=== PATIENT | female | born 1975 | race Caucasian/White ===

== ENCOUNTER 2022-07-09 18:34 | Emergency (ER) | payer SELFPAY ==
[~2022-07-09] VITALS: Ht 165.1 cm; Wt 81.8 kg
[2022-07-09 19:03] LABS: BASOPHILS % (AUTO) 0.1 % (0.0-2.0); EOSINOPHILS % (AUTO) 0.1 % (1.0-6.0); LYMPHOCYTES # (AUTO) 1.1 K/uL (1.0-4.8); LYMPHOCYTES % (AUTO) 5.9 % (22.0-44.0); MEAN CORPUSCULAR HEMOGLOBIN 31.5 pg (26.0-34.0); MEAN CORPUSCULAR HGB CONC 33.2 G/dL (31.0-37.0); MEAN CORPUSCULAR VOLUME 95 fL (80-100); MONOCYTES # (AUTO) 1.1 K/uL (0.1-1.0); MONOCYTES % (AUTO) 5.6 % (2.0-9.0); NEUTROPHILS # (AUTO) 16.5 K/uL (1.8-7.7); PLATELET COUNT (AUTO) 242 K/uL (150-450); RED CELL DISTRIBUTION WIDTH 13.4 % (11.5-14.5)
[2022-07-09 19:04] LABS: NEUTROPHILS % (AUTO) 88.3 % (40.0-70.0)
[2022-07-09 19:12] LABS: ANION GAP 8 mmol/L (8-16); CALCIUM, TOTAL 8.5 mg/dL (8.8-10.5); CARBON DIOXIDE 25 mmol/L (22-29); CHLORIDE 103 mmol/L (98-107); CREATININE 0.77 mg/dL (0.60-1.30); GLUCOSE,RANDOM 115 mg/dL (70-110); POTASSIUM 3.4 mmol/L (3.5-5.1); SODIUM SERUM 136 mmol/L (136-145); UREA NITROGEN, BLOOD 13 mg/dL (7-18)
[2022-07-09 19:13] LABS: GLOMERULAR FILTR. RATE CALC > 60 mL/min (>60)
[2022-07-09 19:23] LABS: ALANINE AMINOTRANSFERASE 30 U/L (12-78); ALBUMIN 2.8 g/dL (3.4-5.0); ALKALINE PHOSPHATASE 78 U/L (46-116); ASPARTATE AMINOTRANSFERASE 24 U/L (15-37); BILIRUBIN,TOTAL 0.8 mg/dL (0.1-1.0); HCG,QUANTITATIVE 1 mIU/mL (0-6); LIPASE 68 U/L (73-393); TOTAL PROTEIN, SERUM 6.2 g/dL (6.4-8.2)
[2022-07-09] MEDS ORDERED: SODIUM CHLORIDE 0.9% 100 ML ONE (20:44)
[2022-07-09] MEDS ORDERED: IOHEXOL 300 MG/ML 100 ML VIAL ONE (20:44)
[2022-07-09] MEDS ORDERED: SODIUM CHLORIDE 0.9% 1,000 ML IV ONE (20:45)
[2022-07-09] MEDS ORDERED: ONDANSETRON HCL 4 MG/2 ML VIAL IVP ONE (20:45)
[2022-07-09] MEDS ORDERED: MORPHINE SULFATE 4 MG/ML SYRINGE IVP ONE (20:45)
[2022-07-09 22:30] VITALS: BP 125/71
[2022-07-09] MEDS ORDERED: KETOROLAC TROMETHAMINE 30 MG/ML VIAL IVP ONE (22:30)
== END 2022-07-09 23:18 | disposition home or self-care (01) ==
LOC: EMS 18:34
DX: D25.9 Leiomyoma of uterus, unspecified (principal); F17.210 Nicotine dependence, cigarettes, uncomplicated; Z88.0 Allergy status to penicillin
CPT/HCPCS: 99285; 74177; 96374; 76856; 96361; 96375; 80053; 81002; 83690; 84702; 85025; 36415; J1885; J2270; J2405; J7030; J7050; Q9967

== ENCOUNTER 2024-12-08 18:27 | Emergency (ER) | payer OTHER ==
[~2024-12-08] VITALS: Ht 165.1 cm; Wt 79.5 kg
[2024-12-08 18:33] VITALS: TEMP 98.7
[2024-12-08] MEDS: TraMADol HCL 50 MG TABLET PO ONE (19:55)
[2024-12-08] MEDS: KETOROLAC TROMETHAMINE 30 MG/ML VIAL IM ONE (19:56)
[2024-12-08] MEDS ORDERED: CLIN-142 PO (20:43)
[2024-12-08] MEDS ORDERED: TRAM50TA5 PO (20:44)
[2024-12-08] MEDS: CLINDAMYCIN HCL 150 MG CAPSULE PO ONE (20:57)
[2024-12-08 21:05] VITALS: BP 159/95; PULSE 78; RESP 18; O2SAT 99
== END 2024-12-08 22:06 | disposition home or self-care (01) ==
LOC: EMS 18:27
DX: K02.9 Dental caries, unspecified (principal); F17.210 Nicotine dependence, cigarettes, uncomplicated; Z88.0 Allergy status to penicillin
CPT/HCPCS: 99283; 96372; J1885